=== PATIENT | female | born 1980 | race African-American/Black ===

== ENCOUNTER 2017-09-17 09:10 | Outpatient (CLI) | payer MEDICAID ==
--- NOTE | 2017-09-22 10:57 | EEG ---
Referring Physician: DR. KELLE RIBEIRO EEG # [id number] PROCEDURE: Outpatient electroencephalogram NAME OF PATIENT: Charlene Duke DATE EEG DONE: 09/17/2017. INDICATION: Seizure disorder, episode of unresponsiveness. REPORT: This is a 22-channel digital EEG recording utilizing 10-20 international electrode placement system on a patient with history of cerebral palsy and seizure disorder, seizures under good control, with an episode of unresponsiveness recently. During this EEG, there is constant movement and electrode artifact noted. Patient is unable to cooperate throughout the study. The brief artifact free period shows abundant beta activity mixed with myogenic activity and theta rhythm. The background activity is symmetric and reactive. DROWSINESS AND SLEEP: Unable to appreciate any clear drowsy or sleep stages. ABNORNMALITIES: As mentioned before, there is constant and abundant movement and electrode artifact noted throughout the EEG. There are possible and likely spike and slow wave discharges noted in the central region, predominantly notated at FZ,CZ, C3, C4. However, no electrographic seizures noted. No clear alpha rhythm noted. INDUCTION: HYPERVENTILATION: Could not be performed. PHOTIC STIMULATION: Again, abundant electrode artifact noted during photic stimulation, no clear photic drive seen. IMPRESSION: Abundant movement and electrode artifact noted throughout the recording. There is abundant beta activity noted throughout the EEG. There are possible and likely epileptiform activity noted in the central region, predominantly at FZ,CZ,C3,C4. No electrographic seizures noted. Clinical correlation recommended. Duplicator Punch Set Up Operator: ELAINE Quality Control: EEG.[email or web address] MASTERS
== END 2017-09-17 09:11 | disposition home or self-care (01) ==
LOC: EEG 09:10
PROVIDERS: ATTEND Student in an Organized Health Care Education/Training Program
DX: G40.909 Epilepsy, unspecified, not intractable, without status epilepticus (principal)
CPT/HCPCS: 95816